=== PATIENT | female | born 1975 | race Caucasian/White ===

== ENCOUNTER 2021-01-14 21:07 | Observation (INO) ==
[2021-01-14 21:54] LABS: Basophils % 0.2 %; Eosinophils % 0.5 %; Hematocrit 43.7 % (35.3-44.9); Hemoglobin 14.6 g/dL (11.5-15.4); Immature Granulocytes % 0.3 % (0-4); Lymphocytes # 1.4 K/mcL (0.6-4.6); Lymphocytes % 15.7 %; Mean Corpuscular HGB Conc 33.4 g/dL (31.6-35.5); Mean Corpuscular Hemoglobin 29.7 pg (28.0-33.3); Mean Corpuscular Volume 88.8 fL (83.0-100.0); Mean Platelet Volume 9.8 fL (9.4-12.4); Monocytes # 0.5 K/mcL (0.0-1.3); Monocytes % 5.9 %; Neutrophils # 6.9 K/mcL (1.6-8.9); Platelet Count 239 K/mcL (140-400); Red Blood Count 4.92 M/mcL (3.82-4.97); Red Cell Distribution Width 13.5 % (11.5-14.5); Segmented Neutrophils % 77.4 %; White Blood Count 8.9 K/mcL (4.3-11.1)
[2021-01-14 22:13] LABS: Alanine Aminotransferase 15 Units/L (7-52); Albumin 4.4 g/dL (3.5-5.7); Albumin/Globulin Ratio 1.5 (1.1-2.2); Alkaline Phosphatase 47 Units/L (34-104); Aspartate Amino Transferase 20 Units/L (13-39); BUN/Creatinine Ratio 14 (6-26); Bilirubin,Direct 0.1 mg/dL (0.0-0.2); Bilirubin,Indirect 0.3 mg/dL (0.0-1.0); Bilirubin,Total 0.4 mg/dL (0.3-1.0); Blood Urea Nitrogen 13 mg/dL (6-20); Carbon Dioxide 27 mEq/L (23-29); Chloride 101 mEq/L (98-107); Globulin 2.9 g/dL (2.4-3.5); Glucose 116 mg/dL (70-105); Lipase 14 Units/L (11-82); Osmolality,Calculated 281 (280-300); Potassium 4.2 mEq/L (3.5-5.1); Sodium 135 mEq/L (136-145); Total Protein 7.3 g/dL (6.4-8.9); eGFR For African Americans > 60 (> 60); eGFR For Non-African Americans > 60 (> 60)
[2021-01-14 22:22] LABS: Bacteria,Urine Few per hpf (None-Few); Bilirubin,Urine Negative (Negative); Blood,Urine Negative (Negative); Clarity,Urine Turbid (Clear); Color,Urine Yellow (Yellow); Glucose,Urine (UA) Normal (Normal); Ketones,Urine Negative (Negative); Leukocyte Esterase,Urine Negative (Negative); Mucus,Urine Few per lpf (None-Few); Nitrite,Urine Negative (Negative); Protein,Urine Trace mg/dL (Neg-Trace); Specific Gravity,Urine 1.028 (1.010-1.025); Squamous Epithelial Cell,Urine Few per hpf (None-Few); WBC,Urine 0-3 per hpf (0-3)
[2021-01-14] MEDS ORDERED: Isovue-370 500 ML BOTTLE IVP ONE (23:08)
[2021-01-14] MEDS ORDERED: Morphine Sulfate 2 MG/ML SYRINGE IVP ONE (23:09)
[2021-01-14] MEDS ORDERED: Ondansetron 4 MG/2 ML VIAL IVP PRN (23:26)
[2021-01-15 00:17] LABS: Troponin I < 0.03 ng/mL (< 0.04)
[2021-01-15] MEDS ORDERED: *HR* HYDROmorphone (PF) 1 MG/ML SYRINGE IVP ONE (01:00)
[2021-01-15] MEDS ORDERED: GI Cocktail 40 ML EACH PO ONE (04:33)
[2021-01-15] MEDS ORDERED: Aspirin 81 MG TAB.CHEW PO ONE (06:25)
[2021-01-15] MEDS ORDERED: Melatonin 3 MG TABLET PO PRN (08:11)
[2021-01-15] MEDS ORDERED: 0.9 % Sodium Chloride 1,000 ML IVC ONE (08:11)
[2021-01-15] MEDS ORDERED: Acetaminophen 325 MG TABLET PO PRN (08:11)
[2021-01-15] MEDS ORDERED: Ketorolac 15 MG/ML VIAL IVP PRN (08:11)
[2021-01-15] MEDS ORDERED: Ondansetron 4 MG/2 ML VIAL IVP PRN (08:11)
[2021-01-15] MEDS ORDERED: Naloxone 0.4 MG/ML INJ IVP PRN (08:11)
[2021-01-15] MEDS ORDERED: *HR* Enoxaparin 40 MG/0.4 ML SYRINGE SQ ONE (08:14)
[2021-01-15 09:59] LABS: C-Reactive Protein 6 mg/L (Less than 10); Troponin I < 0.03 ng/mL (< 0.04)
[2021-01-15 11:14] VITALS: BP 104/63
[2021-01-16] MEDS ORDERED: *HR* Enoxaparin 40 MG/0.4 ML SYRINGE SQ SCH (06:00)
== END 2021-01-15 13:00 | disposition home or self-care (01) ==
LOC: 3BNU 21:07 → EMEROOARM 21:07 → SUATTDRO 01-15 06:40 → 3BNU 01-15 08:06
PROVIDERS: ADMIT Internal Medicine; ATTEND Internal Medicine